=== PATIENT | female | born 1950 | race African-American/Black ===

== ENCOUNTER → 2020-12-07 | Outpatient (CLI) | payer MEDICARE, OTHER ==
[2020-11-27 11:00] VITALS: BP 132/58
[~2020-12-07] MED LIST: ALBU2.5V8 INH; ALPR1TAB6 PO; BACL10TA PO; BUME1TAB3 PO; DULO20CA PO; EZET10TA20 PO; ISOS30TA68 PO; LEVO112T49 PO; LINZESS145 MCG PO; OMEP20CA16 PO; OXYC1TAB19 PO; POTA10TA12 PO; UMEC1DIS IH
[2020-12-09 20:12] LABS: ANA INTERP Negative (.)
== END ==
LOC: LAB 15:52
PROVIDERS: ATTEND Nurse Practitioner Family
DX: R51.9 Headache, unspecified (principal)
CPT/HCPCS: 36415; 85651; 86038; 86140

== ENCOUNTER → 2020-12-07 | Outpatient (CLI) | payer MEDICARE, OTHER ==
[2020-11-27 11:00] VITALS: BP 132/58
[2020-12-07 16:44] LABS: BILIRUBIN,URINE NEGATIVE (NEG); CLARITY,URINE CLEAR; COLOR,URINE YELLOW; NITRITE,URINE NEGATIVE (NEG); PH,URINE 5.5 (<5.0-8.0); PROTEIN,URINE NEGATIVE (NEG-TRACE)
[2020-12-07 16:53] LABS: BACTERIA,URINE FEW /HPF (0-FEW); RBC,URINE 0 /HPF (0-2); WBC,URINE RARE /HPF (0-4)
[2020-12-07 17:09] LABS: ALBUMIN 3.4 g/dL (3.4-5.0); CALCIUM 8.8 mg/dL (8.5-10.1); CREATININE 1.2 mg/dL (0.6-1.0); GFR 54.2; PHOSPHORUS 3.9 mg/dL (2.6-4.7); POTASSIUM 4.8 mmol/L (3.5-5.1); URIC ACID 6.4 mg/dL (2.6-6.0)
== END ==
LOC: LAB 16:28
DX: I12.9 Hypertensive chronic kidney disease with stage 1 through stage 4 chronic kidney disease, or unspecified chronic kidney disease (principal); E11.21 Type 2 diabetes mellitus with diabetic nephropathy; N18.31 Chronic kidney disease, stage 3a; E78.5 Hyperlipidemia, unspecified; J44.9 Chronic obstructive pulmonary disease, unspecified; Z68.34 Body mass index [BMI] 34.0-34.9, adult; Z90.5 Acquired absence of kidney
CPT/HCPCS: 36415; 80069; 81001; 84550